=== PATIENT | female | born 1995 | race Hispanic/Latino ===

== ENCOUNTER 2019-05-07 08:26 | Emergency (ER) | payer OTHER, SELFPAY ==
--- NOTE | 2019-05-07 11:39 | PDOC.EVN ---
Event Note - Event Note Event Note: Mica Patcher consult ER Room 4. Patient seen at 11:15-11:30. Full dictation to follow.
--- NOTE | 2019-05-07 12:22 | CON ---
DATE OF CONSULTATION: 05/07/2019 TIME OF EVALUATION: 1115 to about 1130. LOCATION: ER, bed #4. REQUESTING PHYSICIAN: ER provider on service. REASON FOR EVALUATION: "Possible tear in the vagina after bowel movement." HISTORY OF PRESENT ILLNESS: This is a 23-year-old female, who is a 2, para 2, who had a vaginal delivery 1 year ago, LMP is now. She states that she had a bowel movement last night and was concerned that she had a vaginal tear in the area of the old laceration. She states that she looked down in the vaginal area, but was unsure if she tore a knot. I was called because the ER physician stated that she may have a small tear in the vagina, even though her delivery was one year ago. Last intercourse was about 3 weeks ago and has had no problems with sex. She denies pain or fever. She is currently without pain and doing well, although she is on her menstrual cycle. REVIEW OF SYSTEMS: Complete review of systems was checked and is otherwise negative unless specified in the HPI. PAST MEDICAL HISTORY: Negative. ALLERGIES: NONE. PAST SURGICAL HISTORY: None. SOCIAL HISTORY: Negative x3. PHYSICAL EXAMINATION: VITAL SIGNS: Stable and she is afebrile. General: Clinically, she is in no acute distress. : Perineal inspection shows normal external vulval vaginal structures. The rectal area is normal. There is no evidence of mucosal tear or deficit. There is no area of separation. There is slight menstrual blood in the vaginal cavity. There are no ulcerations. ASSESSMENT: 1. This is a 23-year-old female with a vaginal delivery 1 year ago and a laceration that was repaired by Dr. Alas. She has had no recent intercourse (within the last 3 weeks) and had a strained bowel movement yesterday and was concerned about the laceration site. I performed a complete evaluation along with Gerard Macario, 3rd year clinical medical student, and there is no evidence of separation. It is also unlikely to have a spontaneous repaired laceration dehiscence at 1 year after the event, from a bowel movement. 2. I reviewed with the patient that this is normal structure, which she was seen, and there is no area that needs to be repaired. 3. No specific gynecological concerns, and the patient will be discharged. Job ID: [id number]
[2019-05-07 12:34] LABS: Pregnancy Test - Urine (BHCG) Negative (Negative); Pregu Control Background? CLEAR/WHITE (CLR/WHITE); Pregu Control Bar Appear? YES (CONTROL BAR)
== END 2019-05-07 11:56 | disposition left against medical advice (07) ==
LOC: ERS 08:26
DX: Z71.1 Person with feared health complaint in whom no diagnosis is made (principal)
CPT/HCPCS: 81025; 99284

== ENCOUNTER 2023-04-21 07:35 | Outpatient (CLI) | payer OTHER | END 2023-04-21 07:36 | disposition home or self-care (01) | LOC: BICULT 07:35 | PROVIDERS: ATTEND Nurse Practitioner Women's Health | DX: O09.892 Supervision of other high risk pregnancies, second trimester (principal); Z3A.20 20 weeks gestation of pregnancy | CPT/HCPCS: 76805 ==